=== PATIENT | male | born 1955 | race Hispanic/Latino ===

== ENCOUNTER 2020-03-22 05:45 | Emergency (ER) | payer MEDICARE ==
[2020-03-22 06:02] VITALS: BP 158/91
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
[2020-03-22] MEDS ORDERED: KETOROLAC 60 MG/2 ML INJ IM ONE (07:07)
[2020-03-22 07:34] LABS: Basophils % (Auto) 0.5 % (0.0-1.8); Eosinophils # (Auto) 0.1 K/mm3 (0.0-0.4); Eosinophils % (Auto) 0.9 % (0.0-4.3); Hematocrit 44.8 % (35.5-45.6); Hemoglobin 15.8 gm/dl (11.8-15.2); Lymphocytes # (Auto) 1.2 K/mm3 (1.2-5.4); Lymphocytes % (Auto) 17.7 % (13.4-35.0); Mean Corpuscular HGB Conc 35 % (32-34); Mean Corpuscular Volume 88 fl (84-94); Monocytes # (Auto) 0.9 K/mm3 (0.0-0.8); Monocytes % (Auto) 14.1 % (0.0-7.3); Platelet Count 205 K/mm3 (140-440); Red Blood Count 5.07 M/mm3 (3.65-5.03); Red Cell Distribution Width 12.7 % (13.2-15.2)
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
[2020-03-22 08:14] LABS: Calcium 11.2 mg/dL (8.4-10.2)
== END 2020-03-22 09:07 | disposition home or self-care (01) ==
LOC: ED 05:45
DX: M54.5 Low back pain (principal); M79.605 Pain in left leg; M79.604 Pain in right leg; I10 Essential (primary) hypertension; E11.9 Type 2 diabetes mellitus without complications; Z90.89 Acquired absence of other organs; Z88.8 Allergy status to other drugs, medicaments and biological substances
CPT/HCPCS: 36415; 72131; 80048; 85025; 96372; 99284; J1885

== ENCOUNTER 2020-03-22 21:57 | Emergency (ER) | payer MEDICARE ==
[2020-03-22 23:40] LABS: Basophils % (Auto) 0.6 % (0.0-1.8); Eosinophils # (Auto) 0.1 K/mm3 (0.0-0.4); Eosinophils % (Auto) 1.6 % (0.0-4.3); Hematocrit 45.3 % (35.5-45.6); Hemoglobin 15.9 gm/dl (11.8-15.2); Lymphocytes # (Auto) 1.4 K/mm3 (1.2-5.4); Lymphocytes % (Auto) 19.7 % (13.4-35.0); Mean Corpuscular HGB Conc 35 % (32-34); Mean Corpuscular Volume 89 fl (84-94); Monocytes # (Auto) 1.1 K/mm3 (0.0-0.8); Monocytes % (Auto) 14.9 % (0.0-7.3); Platelet Count 201 K/mm3 (140-440); Red Cell Distribution Width 12.5 % (13.2-15.2)
--- NOTE | 2020-03-22 23:44 | Emergency Department Report ---
ED General Adult HPI - General Chief complaint: Hyperglycemia Stated complaint: ELEVATED BLOOD SUGAR PUI?: No Time Seen by Provider: 03/22/20 23:35 Source: patient Mode of arrival: Ambulatory Limitations: No Limitations - History of Present Illness Initial comments: Chief complaint: My sugars have been up." HPI this is a 64-year-old male with history of hypertension, insulin-dependent diabetes, sciatica who presents with elevated blood sugars. He has been compliant with his insulin therapy NovoLog and Levemir. He recently saw his personal physician in [facility] last week. He also was evaluated in our emergency department this morning for sciatica lumbar radiculopathy. He has been compliant with diabetic diet. He recently moved from [facility] to live with his father in [facility]. He is currently building a home here in [place]. He denies pain or discomfort. He denies polyuria polydipsia. -: Gradual (1), days(s) Consistency: constant Improves with: none Worsens with: none Associated Symptoms: denies other symptoms Treatments Prior to Arrival: none - Related Data Previous Rx's Medication Instructions Recorded Last Taken Type Naproxen [Naprosyn] 500 mg PO BID #14 tablet 03/22/20 Unknown Rx Ondansetron [Zofran Odt] 4 mg PO Q8HR PRN #14 tab.rapdis 03/22/20 Unknown Rx traMADoL [Ultram 50 MG tab] 50 mg PO Q4HR PRN #14 tablet 03/22/20 Unknown Rx Allergies Allergy/AdvReac Type Severity Reaction Status Date / Time bacitracin Allergy Hives Verified 03/22/20 23:05 [From Triple Antibiotic] morphine Allergy Hives Verified 03/22/20 23:04 neomycin Allergy Hives Verified 03/22/20 23:05 [From Triple Antibiotic] nifedipine [From Procardia] Allergy Itching Verified 03/22/20 23:04 polymyxin B Allergy Hives Verified 03/22/20 23:05 [From Triple Antibiotic] ED Review of Systems ROS: Stated complaint: ELEVATED BLOOD SUGAR Other details as noted in HPI Comment: All other systems reviewed and negative Constitutional: denies: fever, malaise Respiratory: denies: cough, shortness of breath Cardiovascular: denies: chest pain Endocrine: denies: increased hunger, increased thirst, increased urine, unexplained weight gain, unexplained weight loss Gastrointestinal: denies: abdominal pain, nausea, vomiting Neurological: denies: headache, weakness ED Past Medical Hx - Past Medical History Previous Medical History?: Yes Hx Hypertension: Yes Hx Diabetes: Yes - Surgical History Past Surgical History?: Yes Additional Surgical History: Tonsilectomy - Social History Smoking Status: Never Smoker Substance Use Type: None - Medications Home Medications: Home Medications Medication Instructions Recorded Confirmed Last Taken Type Naproxen [Naprosyn] 500 mg PO BID #14 tablet 03/22/20 Unknown Rx Ondansetron [Zofran Odt] 4 mg PO Q8HR PRN #14 tab.rapdis 03/22/20 Unknown Rx traMADoL [Ultram 50 MG tab] 50 mg PO Q4HR PRN #14 tablet 03/22/20 Unknown Rx ED Physical Exam - General Limitations: No Limitations General appearance: alert, in no apparent distress - Head Head exam: Present: atraumatic, normocephalic - Eye Eye exam: Present: normal appearance - ENT ENT exam: Present: mucous membranes moist - Neck Neck exam: Present: normal inspection, full ROM - Respiratory Respiratory exam: Present: normal lung sounds bilaterally. Absent: respiratory distress, wheezes, rales, rhonchi - Cardiovascular Cardiovascular Exam: Present: regular rate, normal rhythm, normal heart sounds. Absent: systolic murmur, diastolic murmur, rubs, gallop - GI/Abdominal GI/Abdominal exam: Present: soft, normal bowel sounds. Absent: distended, tenderness, guarding, rebound - Rectal Rectal exam: Present: deferred - Extremities Exam Extremities exam: Present: normal inspection - Neurological Exam Neurological exam: Present: alert, oriented X3 - Psychiatric Psychiatric exam: Present: normal affect, normal mood - Skin Skin exam: Present: warm, dry, intact, normal color. Absent: rash ED Course Vital Signs 03/22/20 22:55 Temperature 98.2 F Pulse Rate 68 Respiratory 18 Rate Blood Pressure 139/77 O2 Sat by Pulse 97 Oximetry ED Medical Decision Making - Lab Data Result diagrams: 03/22/20 23:21 03/22/20 23:21 - Medical Decision Making This is a 64-year-old male with history of hypertension and diabetes mellitus who presents with hyperglycemia. I reviewed labs obtained this morning and recently during this encounter. Hyponatremia persistent as well as decreased GFR prerenal injury pattern. Patient received IV fluid therapy for acute hyperglycemia and hypovolemic hyponatremia. Patient is discharged home. He was given referral to outpatient medicine physician. Critical care attestation.: If time is entered above; I have spent that time in minutes in the direct care of this critically ill patient, excluding procedure time. ED Disposition Clinical Impression: Acute hyperglycemia, Hypovolemia dehydration Disposition: DC-01 TO HOME OR SELFCARE Is pt being admited?: No Does the pt Need Aspirin: No Condition: Stable Instructions: Hyponatremia (ED) Referrals: TALIA ROJAS MD [Staff Physician] - 3-5 Days
[2020-03-22 23:55] LABS: Calcium 10.6 mg/dL (8.4-10.2)
[2020-03-23] MEDS ORDERED: SODIUM CHLORIDE 0.9% 1000 ML 1,000 ML IV ONE (00:21)
[2020-03-23 02:12] VITALS: BP 149/68
== END 2020-03-23 02:13 | disposition home or self-care (01) ==
LOC: ED 21:57
DX: E11.65 Type 2 diabetes mellitus with hyperglycemia (principal); E86.1 Hypovolemia; E86.0 Dehydration; I10 Essential (primary) hypertension; Z90.89 Acquired absence of other organs; Z79.899 Other long term (current) drug therapy; Z88.8 Allergy status to other drugs, medicaments and biological substances
CPT/HCPCS: 36415; 80048; 82962; 85025; 96360; 99283; J7030